=== PATIENT | female | born 1990 | race American Indian/Alaskan Native ===

== ENCOUNTER 2017-07-13 19:21 | Emergency (ER) | payer SELFPAY ==
--- NOTE | 2017-07-13 22:19 | Emergency Department Report ---
ED Extremity Problem HPI - General Chief complaint: Extremity Injury, Lower Stated complaint: LEFT CALF PAIN Time Seen by Provider: 07/13/17 19:43 Source: patient Mode of arrival: Ambulatory Limitations: No Limitations - History of Present Illness Initial comments: This is a 26-year-old female with a past medical history significant for anemia and borderline hypertension past surgical history significant for who is a non-smoker and does not drink alcohol or partake in illicit drug use presents to the emergency room for evaluation of left calf pain swelling and cramps for 2 weeks. She denies any injury. She denies other symptoms. Today her blood pressure is 145/80. MD Complaint: extremity pain (left lower extremity), extremity swelling (left lower extremity in the calf area.) -: Gradual Location: left, lower extremity History of Same: No -: Yes myalgia Radiation: none Severity scale (0 -10): 7 Quality: other (cramping) Consistency: constant Improves with: nothing Worsens with: nothing Associated Symptoms: denies other symptoms. denies: chest pain, shortness of breath, fever - Related Data Allergies Allergy/AdvReac Type Severity Reaction Status Date / Time No Known Allergies Allergy Unverified 07/13/17 19:33 ED Review of Systems ROS: Stated complaint: LEFT CALF PAIN Other details as noted in HPI Comment: All other systems reviewed and negative Constitutional: see HPI Eyes: as per HPI ENT: as per HPI Respiratory: see HPI Cardiovascular: as per HPI Endocrine: see HPI Gastrointestinal: as per HPI Genitourinary: as per HPI Musculoskeletal: as per HPI Skin: as per HPI Neurological: as per HPI Psychiatric: as per HPI Hematological/Lymphatic: as per HPI ED Past Medical Hx - Past Medical History Previous Medical History?: No - Surgical History Past Surgical History?: No - Social History Smoking Status: Never Smoker Substance Use Type: None ED Physical Exam - General Limitations: No Limitations General appearance: alert, in no apparent distress - Head Head exam: Present: atraumatic - Eye Eye exam: Present: normal appearance, PERRL, EOMI - ENT ENT exam: Present: normal exam - Neck Neck exam: Present: normal inspection - Respiratory Respiratory exam: Present: normal lung sounds bilaterally. Absent: respiratory distress, wheezes, rales, rhonchi, chest wall tenderness, decreased breath sounds - Cardiovascular Cardiovascular Exam: Present: regular rate, normal rhythm, normal heart sounds - GI/Abdominal GI/Abdominal exam: Present: soft, normal bowel sounds. Absent: distended, tenderness, guarding, rebound, rigid - Extremities Exam Extremities exam: Present: normal inspection, full ROM, normal capillary refill , calf tenderness (left). Absent: pedal edema, joint swelling - Back Exam Back exam: Present: normal inspection, full ROM - Neurological Exam Neurological exam: Present: alert, oriented X3, CN II-XII intact, normal gait - Psychiatric Psychiatric exam: Present: normal affect, normal mood - Skin Skin exam: Present: warm, dry, intact, normal color ED Course Vital Signs 07/13/17 07/13/17 07/13/17 19:25 19:32 19:44 Temperature 98.4 F 98.9 F 98.5 F Pulse Rate 88 98 H Respiratory 18 20 Rate Blood Pressure 145/80 129/85 [Right] O2 Sat by Pulse 100 99 Oximetry 07/13/17 19:46 Temperature Pulse Rate Respiratory 20 Rate Blood Pressure [Right] O2 Sat by Pulse 99 Oximetry - Reevaluation(s) Reevaluation #1: 07/13/17 23:09 I explained to the patient that ultrasound is not available at the moment. He did a d-dimer and it was negative. I also checked her potassium and electrolytes. These are all within normal limits. The odds of her having a blood clot in the left lower extremity are low. I advised the patient that she needs to follow up with her primary care doctor of choice. If she has any concerns then she can return to the emergency room. I advised her that if she experiences sudden chest pain shortness of breath and increased heart rate then she should report return to the emergency room or call 911 promptly. She expresses understanding. At this time we will discharge the patient. ED Medical Decision Making - Lab Data Result diagrams: 07/13/17 22:15 07/13/17 22:15 Critical care attestation.: If time is entered above; I have spent that time in minutes in the direct care of this critically ill patient, excluding procedure time. ED Disposition Clinical Impression: Leg pain, left Disposition: [id number] TO HOME OR SELFCARE Is pt being admited?: No Does the pt Need Aspirin: No Condition: Stable Instructions: Musculoskeletal Pain (ED) Additional Instructions: Rest, fluids, watch for worsening, new symptoms, follow up with your primary care doctor of choice, return as needed, call 911 if you think you're having a life threatening emergency. Referrals: YASMEEN MATA MD [Primary Care Provider] - 3-5 Days
[2017-07-13 22:23] LABS: Basophils # (Auto) 0.1 K/mm3 (0.0-0.1); Eosinophils # (Auto) 0.2 K/mm3 (0.0-0.4); Eosinophils % (Auto) 2.1 % (0.0-4.3); Hematocrit 36.3 % (30.3-42.9); Hemoglobin 11.7 gm/dl (10.1-14.3); Lymphocytes # (Auto) 2.2 K/mm3 (1.2-5.4); Lymphocytes % (Auto) 27.2 % (13.4-35.0); Mean Corpuscular HGB Conc 32 % (30-34); Monocytes # (Auto) 0.5 K/mm3 (0.0-0.8); Monocytes % (Auto) 6.2 % (0.0-7.3); Platelet Count 296 K/mm3 (140-440); Red Blood Count 5.28 M/mm3 (3.65-5.03); Red Cell Distribution Width 14.8 % (13.2-15.2)
[2017-07-13 22:25] LABS: Mean Corpuscular Hemoglobin 22 pg (28-32); Mean Corpuscular Volume 69 fl (79-97)
[2017-07-13 23:02] LABS: Alanine Aminotransferase 17 units/L (7-56); Albumin 4.1 g/dL (3.9-5); BUN/Creatinine Ratio 24; Blood Urea Nitrogen 17 mg/dL (7-17); Calcium 9.2 mg/dL (8.4-10.2); Hemolysis Index 58
[2017-07-13 23:21] VITALS: BP 127/82
== END 2017-07-13 23:21 | disposition home or self-care (01) ==
LOC: ED 19:21
DX: M79.605 Pain in left leg (principal)
CPT/HCPCS: 36415; 80053; 85025; 85379; 99283